=== PATIENT | female | born 1985 | race Caucasian/White ===

== ENCOUNTER 2020-05-25 11:14 | Outpatient (CLI) | payer BC | END 2020-05-25 11:15 | disposition home or self-care (01) | LOC: CTENTCT 11:14 | PROVIDERS: ATTEND Otolaryngology Plastic Surgery within the Head & Neck | DX: J32.9 Chronic sinusitis, unspecified (principal) | CPT/HCPCS: 70486 ==

== ENCOUNTER 2020-06-14 07:41 | Day surgery (SDC) | payer BC ==
[2020-06-13 10:05] VITALS: BMI 35.1
[2020-06-14] MEDS ORDERED: AFRIN NASAL MIST 15 ML BOT ONE (08:14)
[2020-06-14] MEDS ORDERED: Fentanyl 100 MCG/2 ML VIAL ONE ×2 (08:26→11:22)
[2020-06-14] MEDS ORDERED: Morphine 2 MG/ML VIAL ONE (08:26)
[2020-06-14] MEDS ORDERED: Lidocaine 1% PF 5 ML VIAL ONE (08:59)
[2020-06-14] MEDS ORDERED: Dexamethasone 20 MG/5 ML VIAL ONE (08:59)
[2020-06-14] MEDS ORDERED: PROPOFOL 200 MG/20 ML VIAL ONE (08:59)
[2020-06-14] MEDS ORDERED: Succinylcholine 200 MG/10 ml SYRINGE FS ONE (08:59)
[2020-06-14] MEDS ORDERED: Ondansetron PF 4 MG/2 ML Vial ONE (08:59)
[2020-06-14] MEDS ORDERED: XYLOCAINE 2%-EPI 1:100,000 20 ML VIAL ONE (09:37)
[2020-06-14] MEDS ORDERED: Morphine 4 MG/ML VIAL ONE (12:15)
[2020-06-14] MEDS ORDERED: Hydrocodone-Acetamin 15 ML UDCUP ONE (13:01)
--- NOTE | 2020-06-14 14:07 | OP ---
DATE OF PROCEDURE: 06/14/2020 PREOPERATIVE DIAGNOSES: 1. Bilateral chronic rhinosinusitis. 2. Bilateral nasal polyposis. 3. Nasal septal deviation. 4. Bilateral inferior turbinate hypertrophy. 5. Nasal obstruction. POSTOPERATIVE DIAGNOSES: 1. Bilateral chronic rhinosinusitis. 2. Bilateral nasal polyposis. 3. Nasal septal deviation. 4. Bilateral inferior turbinate hypertrophy. 5. Nasal obstruction. PROCEDURES PERFORMED: 1. Bilateral endoscopic sinus surgery, total ethmoidectomies including sphenoidotomies with removal of tissue. 2. Bilateral endoscopic sinus surgery, maxillary antrostomies. 3. Bilateral endoscopic sinus surgery, frontal sinus exploration. 4. Nasal septoplasty. 5. Bilateral inferior turbinate submucosal resection. 6. [employer] stereotactic image-guided navigational surgery. ESTIMATED BLOOD LOSS: 20 mL. COMPLICATIONS: None. ANESTHESIA: GETA. DESCRIPTION OF PROCEDURE: Patient was taken to the operating room and placed supine on the table. General endotracheal anesthesia was obtained by the anesthesia staff. Then 1% lidocaine with 1:100,000 epinephrine was injected into the nasal septum as well as the inferior turbinates. The patient was prepped and draped in standard surgical fashion. The Afrin pledgets were then removed. A Yoel incision was made on the left nasal septum. Submucoperichondrial dissection was performed bilaterally of the deviated portions of the septum, which included the maxillary crest and the crest deviation, as well as the mid portion of the septum. Cartilage and bony deviation was removed, leaving a generous caudal and dorsal strut. Any straight pieces of cartilage were then placed within the cartilage press, pressed, straightened, and then placed between the mucoperichondrial flaps, which were then closed using a 4-0 gut stitch. The inferior turbinates were then punctured with the submucosal Coblation machine, and 3 separate coblations were delivered to the anterior inferior portion of the inferior turbinates. Following this, the nasal cavity was irrigated. All debris was removed. An orogastric tube was placed. Gastric contents and Gonzalez splints were then placed in the nasal cavity and sutured with a 3-0 silk stitch. Following this, [employer] image-guided system was then set up and calibrated. It was noted to be within 1 mm of accuracy. All instruments used endonasally were under navigational guidance. Following this, a 0-degree endoscope was advanced to the middle turbinates and the middle turbinates were gently medialized using a Campbell elevator bilaterally. Following this, the uncinate process was visualized and was anteriorly fractured using a ball-ended probe bilaterally. The uncinate process was then removed using the 0-degree microdebrider and up-biting Blakesley forceps bilaterally. Following this, the natural maxillary sinus ostia was identified using the navigational system and the maxillary ostia was widened using a 40-degree microdebrider blade and straight Blakesley forceps bilaterally. Following this, the ethmoidal bulla was identified and was punctured on its medial and inferior aspect bilaterally. Using the 0-degree microdebrider and up-biting Blakesley forceps, the anterior ethmoidal cells and the ethmoidal bulla were removed. Nasal polyps were removed bilaterally as well. Following this, the grand lamella was identified and was punctured using the 0-degree microdebrider into the posterior ethmoidal cells bilaterally. The ethmoidal cells were then opened working from posterior to anterior. Nasal polyps were removed throughout this area. Following this, the anterior wall of the sphenoid sinus was identified. Using the navigational system and 0-degree microdebrider, a sphenoidotomy was created bilaterally with the 0-degree microdebrider and the sphenoidotomy was widened in a medial and inferior direction using the microdebrider bilaterally. Following this, a 45-degree endoscope along with the 40-degree microdebrider blade under navigational guidance was used to further identify and open the frontal sinus ostia bilaterally. Following this, the nasal cavity was irrigated. Nasal pore packing was placed within the middle meatus. Gonzalez splints were placed and secured, and the [employer] navigational system was then turned off. The patient tolerated the procedure well. Job ID: [id number]
== END 2020-06-14 14:20 | disposition home or self-care (01) ==
LOC: SDC 07:41
PROVIDERS: ATTEND Otolaryngology Plastic Surgery within the Head & Neck
PROC: 09BM8ZZ Excision of Nasal Septum, Via Natural or Artificial Opening Endoscopic (ICD-10-PCS; principal; 2020-06-14)
PROC: 09BS8ZZ Excision of Right Frontal Sinus, Via Natural or Artificial Opening Endoscopic (ICD-10-PCS; principal; 2020-06-14)
PROC: 09BV8ZZ Excision of Left Ethmoid Sinus, Via Natural or Artificial Opening Endoscopic (ICD-10-PCS; principal; 2020-06-14)
PROC: 8E09XBZ Computer Assisted Procedure of Head and Neck Region (ICD-10-PCS; principal; 2020-06-14)
PROC: 09BL8ZZ Excision of Nasal Turbinate, Via Natural or Artificial Opening Endoscopic (ICD-10-PCS; principal; 2020-06-14)
PROC: 09BT8ZZ Excision of Left Frontal Sinus, Via Natural or Artificial Opening Endoscopic (ICD-10-PCS; principal; 2020-06-14)
PROC: 099R8ZZ Drainage of Left Maxillary Sinus, Via Natural or Artificial Opening Endoscopic (ICD-10-PCS; principal; 2020-06-14)
PROC: 09CX8ZZ Extirpation of Matter from Left Sphenoid Sinus, Via Natural or Artificial Opening Endoscopic (ICD-10-PCS; principal; 2020-06-14)
PROC: 09CW8ZZ Extirpation of Matter from Right Sphenoid Sinus, Via Natural or Artificial Opening Endoscopic (ICD-10-PCS; principal; 2020-06-14)
PROC: 099Q8ZZ Drainage of Right Maxillary Sinus, Via Natural or Artificial Opening Endoscopic (ICD-10-PCS; principal; 2020-06-14)
PROC: 09BU8ZZ Excision of Right Ethmoid Sinus, Via Natural or Artificial Opening Endoscopic (ICD-10-PCS; principal; 2020-06-14)
DX: J32.8 Other chronic sinusitis (principal); J34.2 Deviated nasal septum; J34.3 Hypertrophy of nasal turbinates; J33.9 Nasal polyp, unspecified; J34.89 Other specified disorders of nose and nasal sinuses; J45.909 Unspecified asthma, uncomplicated; F17.200 Nicotine dependence, unspecified, uncomplicated; E66.9 Obesity, unspecified; Z68.35 Body mass index [BMI] 35.0-35.9, adult; Z79.3 Long term (current) use of hormonal contraceptives; Z91.018 Allergy to other foods
CPT/HCPCS: J1100; J2270; J2405; J2704; J3010